=== PATIENT | male | born 1975 | race Caucasian/White ===

== ENCOUNTER 2018-07-19 21:26 | Emergency (ER) | payer MEDICARE ==
[~2018-07-19] VITALS: Ht 167.6 cm; Wt 78.0 kg
[2018-07-20 01:03] VITALS: BP 120/76
== END 2018-07-20 00:25 | disposition left against medical advice (07) ==
LOC: ER 21:26
DX: F41.9 Anxiety disorder, unspecified (principal); Z53.21 Procedure and treatment not carried out due to patient leaving prior to being seen by health care provider